=== PATIENT | female | born 1990 | race American Indian/Alaskan Native ===

== ENCOUNTER 2017-04-09 07:04 | Emergency (ER) | payer OTHER ==
[2017-04-09 07:28] VITALS: BP 133/88
--- NOTE | 2017-04-09 08:12 | Emergency Department Report ---
HPI - General Chief Complaint: Medical Clearance Time Seen by Provider: 04/09/17 08:04 - HPI HPI: Patient is a 27-year-old female with a history psychosis who presents to ED stating that she recently moved here for [place] and needs medication refill for her Zyprexa 20 mg. She denies any medical problems and states his only and for refill. She denies homicidal or suicidal ideations visual or auditory hallucinations. Patient states she recently moved to [place]. ED Past Medical Hx - Past Medical History Previous Medical History?: Yes Hx Psychiatric Treatment: Yes (psychosis) - Surgical History Past Surgical History?: Yes Additional Surgical History: oral surgery - Social History Smoking Status: Never Smoker Substance Use Type: None - Medications Home Medications: Home Medications Medication Instructions Recorded Confirmed Last Taken Type Olanzapine [Zyprexa] 20 mg PO DAILY #30 tablet 04/09/17 Unknown Rx ED Review of Systems ROS: Stated complaint: MED REFILL Other details as noted in HPI Constitutional: denies: chills, fever Eyes: denies: eye pain, eye discharge, vision change ENT: denies: ear pain, throat pain Respiratory: denies: cough, shortness of breath, wheezing Cardiovascular: denies: chest pain, palpitations Endocrine: no symptoms reported Gastrointestinal: denies: abdominal pain, nausea, diarrhea Genitourinary: denies: urgency, dysuria, discharge Musculoskeletal: denies: back pain, joint swelling, arthralgia Skin: denies: rash, lesions Neurological: denies: headache, weakness, paresthesias Psychiatric: denies: anxiety, depression Hematological/Lymphatic: denies: easy bleeding, easy bruising Physical Exam - Physical Exam Vital Signs: Vital Signs 04/09/17 07:25 Temperature 99.6 F Pulse Rate 110 H Respiratory 18 Rate Blood Pressure 133/88 O2 Sat by Pulse 97 Oximetry Physical Exam: GENERAL: Alert and oriented x3, no apparent distress, Normal Gait, atraumatic. HEAD: Head is normocephalic and a-traumatic. EYES: Pupils are equal, round, and reactive to light and accommodation. LUNGS: Symetrical with respiration, No wheezing, no rales or crackles, CTAB. HEART: S1, S2 present, regular rate and rhythm without murmur, no rubs, no gallops. Non tender to palpation PSYCHIATRIC: Mood is congruent with affect, denies suicidal or homicidal ideations. Denies A/V hallucinations SKIN: Warm and dry, No lesions, No ulceration or induration present. ED Course Vital Signs 04/09/17 07:25 Temperature 99.6 F Pulse Rate 110 H Respiratory 18 Rate Blood Pressure 133/88 O2 Sat by Pulse 97 Oximetry ED Medical Decision Making - Medical Decision Making 27 y- o- female presents for medication refill. ED course: I contacted and and spoke with pharmacist by name of Quintin at [facility] pharmacy in [place] phone number [phone], who verified patient's prescription for olanzapine 20 mg. The pharmacy states that patient was not able to brass pickler her medication due to it being too expensive" last prescriber prescribed the medication date 03/24/2017 but prescription was not picked up due to it being too expensive. Patient will receive a refill medication 20 mg for pain. I discussed with the patient and supervisor metal hanging that she will need to be evaluated by psych catch his CVA. I discussed with both patient and the supervisor metal hanging that she will receive psych referrals. We'll need to make an appointment to follow up and be assessed. Patient and supervisor metal hanging agrees and states they will follow-up. Critical care attestation.: If time is entered above; I have spent that time in minutes in the direct care of this critically ill patient, excluding procedure time. ED Disposition Clinical Impression: Encounter for medication refill Disposition: DC-01 TO HOME OR SELFCARE Is pt being admited?: No Does the pt Need Aspirin: No Condition: Stable Instructions: Olanzapine (By mouth) Additional Instructions: Make sure to follow up with the primary care physician as discussed. Take all your medications as you've been prescribed. If you have any worsening symptoms or develop new symptoms please return to ED immediately. Prescriptions: Olanzapine [Zyprexa] 20 mg PO DAILY #30 tablet Referrals: PRIMARY CARE, [Primary Care Provider] - 3-5 Days [facility] [Outside] - 3-5 Days [facility] [Outside] - 3-5 Days [facility] [Outside] - 3-5 Days [facility] [Outside] - 3-5 Days Forms: Accompanied Note, Work/School Release Form(ED) Time of Disposition: 10:11
[2017-04-09 09:53] LABS: Mucus,Urine FEW /HPF
[2017-04-09 10:18] LABS: Bilirubin,Urine Negative (Negative); Blood,Urine Negative (Negative); Color,Urine Yellow (Yellow); HCG Qualitative,Urine Negative (Negative); Nitrite,Urine Negative (Negative); Protein,Urine <15 mg/dL mg/dL (Negative); Urobilinogen,Urine < 2.0 mg/dL (<2.0); WBC,Urine < 1.0 /HPF (0.0-6.0)
[2017-04-09 11:30] LABS: Amphetamine Screen,Urine PRESUMPTIVE NEGATIVE; Benzodiazepines Screen,Urine PRESUMPTIVE NEGATIVE; Cannabinoid Screen,Urine PRESUMPTIVE NEGATIVE; Cocaine Screen,Urine PRESUMPTIVE NEGATIVE; Methadone Screen,Urine PRESUMPTIVE NEGATIVE; Opiate Screen,Urine PRESUMPTIVE NEGATIVE
== END 2017-04-09 10:29 | disposition home or self-care (01) ==
LOC: ED 07:04
DX: Z76.0 Encounter for issue of repeat prescription (principal)
CPT/HCPCS: 80307; 81001; 81025; 99283

== ENCOUNTER 2018-09-20 23:15 | Emergency (ER) | payer SELFPAY ==
[2018-09-21 00:14] LABS: Basophils % (Auto) 0.1 % (0.0-1.8); Hematocrit 38.6 % (30.3-42.9); Hemoglobin 13.5 gm/dl (10.1-14.3); Lymphocytes # (Auto) 1.2 K/mm3 (1.2-5.4); Lymphocytes % (Auto) 8.4 % (13.4-35.0); Mean Corpuscular HGB Conc 35 % (30-34); Mean Corpuscular Volume 87 fl (79-97); Monocytes # (Auto) 0.8 K/mm3 (0.0-0.8); Monocytes % (Auto) 5.3 % (0.0-7.3); Platelet Count 242 K/mm3 (140-440); Red Blood Count 4.44 M/mm3 (3.65-5.03); Red Cell Distribution Width 13.9 % (13.2-15.2)
[2018-09-21 00:32] LABS: BUN/Creatinine Ratio 13; Blood Urea Nitrogen 16 mg/dL (7-17); Calcium 9.8 mg/dL (8.4-10.2); Hemolysis Index 1
[2018-09-21 01:41] LABS: Bilirubin,Urine NEG (Negative); Blood,Urine SM (Negative); Color,Urine Yellow (Yellow); Mucus,Urine 3+ /HPF; Urobilinogen,Urine < 2.0 mg/dL (<2.0)
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
[2018-09-21 01:57] LABS: Amphetamine Screen,Urine PRESUMPTIVE NEGATIVE; Benzodiazepines Screen,Urine PRESUMPTIVE NEGATIVE; Cannabinoid Screen,Urine PRESUMPTIVE NEGATIVE; Cocaine Screen,Urine PRESUMPTIVE NEGATIVE; Methadone Screen,Urine PRESUMPTIVE NEGATIVE; Opiate Screen,Urine PRESUMPTIVE NEGATIVE
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
[2018-09-21] MEDS ORDERED: K-DUR PO ONE ×2 (20:55→20:59)
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
[2018-09-23 08:45] VITALS: BP 143/99
--- NOTE | 2018-09-23 17:09 | Progress Note ---
Subjective - Reason for Consult Consult date: 09/23/18 Reason for consult: Psychiatric Follow-up Evaluation - Chief Complaint Chief complaint: Unable to assess patient. Patient has been discharged. Mental Status Exam - Vital signs Last Vital Signs Temp 97.7 F 09/23/18 08:42 Pulse 79 09/23/18 08:42 Resp 18 09/23/18 08:42 BP 143/99 09/23/18 08:42 Pulse Ox 98 09/23/18 03:15
== END 2018-09-23 12:05 ==
LOC: ED 23:15 → EEVIPCON 23:15 → ED 09-23 12:05
DX: F29 Unspecified psychosis not due to a substance or known physiological condition (principal)
CPT/HCPCS: 36415; 80048; 80307; 81001; 84703; 85025; 99285; G0480; 80320